=== PATIENT | female | born 1995 | race Caucasian/White ===

== ENCOUNTER → 2022-04-20 | Outpatient (CLI) | payer BC, SELFPAY ==
[2022-04-20 12:06] LABS: Absolute Lymphocyte Count 2.11 X10^3/uL (0.83-4.51); Absolute Neutrophil Count 3.2 X10^3/uL (2.0-7.7); Basophil# 0.04 X10^3/uL; Basophil% 0.7 % (0-1); Eosinophil# 0.07 X10^3/uL; Eosinophils% 1.2 % (0-5); Hematocrit 40.4 % (37-47); Hemoglobin 14.3 g/dL (12.0-15.0); Lymphocyte # 2.11 X10^3/ul (0.83-4.51); Lymphocyte % 36.4 % (19-41); Mean Corp Hgb Conc 35.4 g/dL (32-36); Mean Corpuscular Hgb 31.8 pg (27.0-32.0); Mean Corpuscular Volume 89.8 fL (81-99); Monocyte# 0.36 X10^3/uL; Monocyte% 6.2 % (0-10); NRBC Flagged by Analyzer 0 % (0-5); Neutrophil % 55.3 % (47-70); Platelet Count 274 K/mm3 (150-450); RBC Distribution Width CV 11.9 % (11.6-14.6); RBC Distribution Width SD 39.2 fl (35.1-43.9); White Blood Count 5.8 K/mm3 (4.4-11.0)
[2022-04-20 12:28] LABS: Ferritin 29 ng/mL (8-252); Prealbumin 23.3 mg/dL (20.0-40.0); T4 Total, Thyroxin 7.3 ug/dL (4.8-13.9); Thyroid Stim Hormone (TSH) 2.77 uIU/mL (0.358-3.74)
[2022-04-21 16:25] LABS: Anti-Nuclear Antibody Test Negative (.)
[2022-04-25 22:30] LABS: Androstenedione 155 ng/dL (41-262); Thyroglobulin Antibody < 1.0 IU/mL (0.0-0.9); Thyroid Peroxidase AB < 8 IU/mL (0-34)
== END | disposition home or self-care (01) ==
DX: L65.9 Nonscarring hair loss, unspecified (principal); L71.8 Other rosacea
CPT/HCPCS: 36415; 82157; 82728; 84134; 84436; 84443; 85025; 86038; 86376; 86800

== ENCOUNTER 2025-07-27 10:11 | Emergency (ER) | payer BC, SELFPAY ==
[2025-07-27 10:12] VITALS: BP 145/72; PULSE 118; RESP 18; TEMP 36.1; O2SAT 95; BMI 29.1
--- NOTE | 2025-07-27 10:36 | ED.VIS.FEGU ---
HPI HPI - Female History of Present Illness Chief Complaint: Vag Bld, Preg Informant: patient Narrative Narrative: 30-year-old female presenting to the emergency room with first trimester concerns. Patient states that she has G2, P0, Ab1. She is about 8-1/2 weeks . She has not been seen for this yet. She states that she was recently on antibiotics for a toenail infection and developed a yeast infection. She completed a 3-day Monistat treatment. Following that treatment she noticed brown vaginal discharge. She states it has not let up. She has been in contact with obstetrics several times over the weekend and today was advised that she should come to emergency and be seen because she she is worried. She denies any significant pelvic cramping or pain. No reported fevers. PFSH PFSH Medical History Seasonal allergies Hx of gonorrhea Hx of chlamydia infection history ingrown toenail Home Medications ?Medication ?Instructions ?Recorded ?Last Taken ?Type PNV 153-FA 400 mcg-om3 35 mg-dha tab PO 07/25/25 Unknown History 25 mg-epa 5 mg-fish oil chew tablet ferrous sulfate 325 mg (65 mg 325 mg PO QDAY 07/25/25 Unknown History iron) tablet (FeroSul) Allergy/AdvReac Type Severity Reaction Status Date / Time cat dander Allergy Intermediate Hives Verified 07/27/25 10:11 Family History Mother Breast cancer, Onset Age: 49 INVASIVE DUCTAL, estrogen positive, 2013 Met's to bones, HER2 + 2014 Father Cancer, Onset Age: 46 Prostate Aunt Colon cancer Paternal Grandfather Cancer, Onset Age: 65 Paternal Prostate Surgical History H/O foot surgery Social History adopted: No household members: spouse housing: apartment current occupational status: employed current occupation: [employer] pets and animals: Yes pets and animals: dog(s) history of recent travel: No sexually active: Yes Smoking Status: Never smoker alcohol intake: current alcohol intake frequency: 3 or more drinks per day details: no drinking since substance use type: does not use well-balanced diet: daily or most days caffeine: No eating out: 1-3 times/week during the past year weight has: remained stable what type of physical activity do you participate in: walking frequency: 1-2 times per week duration: 15-30 minutes/day heavenly/restorationism: None seatbelt use: always do you feel safe at home: Yes additional social history: [employer] ROS ROS ED Constitutional Constitutional ED: Denies chills, fever(s) or weight loss Eyes Eyes: Denies change in vision or diplopia ENT ENT ED: Denies ear pain, rhinorrhea or sore throat Cardiovascular Cardiovascular: Denies chest pain, orthopnea, palpitations or racing heartbeat Respiratory/Chest Respiratory/Chest: Denies cough, dyspnea or orthopnea Gastrointestinal Gastrointestinal: Denies abdominal pain, diarrhea, nausea or vomiting Genitourinary Genitourinary ED: Reports other Details: See history of present illness ; Denies dysuria, hematuria or urinary frequency Musculoskeletal Musculoskeletal: Denies arthralgias or myalgias Integumentary Denies abscess or rash Neurologic Neurologic: Denies headache(s) or weakness Psychiatric Psychiatric: Denies anxiety, depression, suicidal ideation or suicidal thoughts Endocrine Endocrinology: Denies polydipsia, polyphagia or polyuria Allergic/Immunologic Allergic/Immunologic ED: Denies mouth swelling, tongue swelling or urticaria EXAM Physical Exam Const Vital Signs: 07/27/25 10:12 07/27/25 12:11 07/27/25 13:18 Temperature 96.9 F L 96.9 F L Temperature Source Temporal Pulse Rate 118 H 85 93 Respiratory Rate 18 16 Blood Pressure 145/72 H 110/61 117/70 Blood Pressure Mean 96 77 85 Pulse Ox 95 100 100 Oxygen Delivery Method Room Air Room Air Positive well nourished and well developed General Appearance ED: well developed and NAD HEENT Reports normocephalic, head/scalp atraumatic and moist mucous membranes Eyes PERRL and EOMs intact bilaterally Neck no lymphadenopathy, supple and no JVD Resp normal respiratory effort and clear to auscultation bilaterally Cardio regular rate, regular rhythm and no murmurs GI normal to inspection, nondistended, normoactive bowel sounds and non-tender Palpation: soft Narrative: Pelvic examination performed in the presence of female CHIEF DEVELOPMENT OFFICER (Cheryl). There is a light brownish discharge in the vaginal vault. I do not see any excoriation abrasions or lacerations of the vaginal wall or the cervix. Cervix appears closed. Uterus nontender. No significant adnexal tenderness. Back/Spine no CVA tenderness and normal ROM Extremity normal to inspection General Extremety ED: Negative for edema General Extremity: Negative for edema Neuro oriented x3 and CN's II-XII intact bilaterally Sensorium / Orientation: alert Motor Exam: strength 5/5 throughout Psych mental status grossly normal Mood & Affect: Negative for depressed or tearful Skin no rashes or lesions noted and no wounds MDM MDM MDM Narrative Medical decision making narrative: Differential diagnosis includes but not limited to ectopic placenta previa threatened miscarriage incomplete miscarriage blighted ovum cervicitis Basic blood work was obtained shows a quantitative hCG of 82,976. Hemoglobin 14.6. Urinalysis with 2+ bacteria but no overt infection. She is a positive. First trimester ultrasound demonstrates a single live intrauterine . Please see radiologist read for full details. The above results were discussed with patient as well as her . Reassurance was given. Precautions given. She is to follow-up with obstetrics. Her plan is to call them on Monday as she is already talk with them over the weekend. History & Record Review Discussion w/independent historian: Patient and Significant other Lab Data Attestation: I reviewed the patient's lab results. Labs: Laboratory Results - last 24 hr 07/27/25 07/27/25 10:33 11:05 Hgb 14.6 Hct 41.3 HCG, Quant 58829 H Urine Color Straw Urine Clarity Clear Urine pH 7.0 Ur Specific [place] 1.005 Urine Protein Negative Urine Glucose (UA) Normal Urine Ketones Negative Urine Occult Blood Negative Urine Nitrite Negative Urine Bilirubin Negative Urine Urobilinogen Normal Ur Leukocyte Esterase Negative Urine RBC 0 SEEN Urine WBC 0-5 SEEN Ur Squamous Epith Cells 0-5 SEEN Urine Bacteria 2+ Urine Mucus 0 SEEN Blood Type A POSITIVE Radiography Diagnostic Testing: Clinical Impression(s) from Imaging Studies Obstetrics Ultrasound 07/27/25 11:18 IMPRESSION: Single live intrauterine with an EGA of 7 weeks 5 days. Size equals dates. No acute abnormality. Reading Location: [id number] Discharge Plan Triage Chief Complaint: Vag Bld, Preg ED Provider: Yordan Cox Dx/Rx/DC Orders Clinical Impression: First trimester Instructions: 1st Trimester, Miscarriage Threatened Prescriptions: No Action PNV no.[id number] 400 mcg-35 mg- 25 mg-5 mg tablet,chewable PO ferrous sulfate [FeroSul] 325 mg (65 mg iron) tablet 325 mg PO QDAY Primary Care Provider: Care Physician,No Primary Referrals: Care Physician,No Primary [Primary Care Provider, Medical] Activity Restrictions/Additional Instructions: Please call your supplies packer on Monday to arrange follow-up. Print Language: Wolof Disposition Disposition: Home, Self Care Discharge Date/Time: 07/27/25 13:26
--- OUTSIDE RECORDS SUMMARY | 2025-07-27 10:55 | XMS RPT_ITS | CCD ---
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 treatment plan. Ayanna Casanova APRN.POOJA documented in this encounter [facility] History of Present illness Narrative 09-01-2020 Laina Gama)Vikash - 09/01/2020 3:00 PM EST Note Date & Type Note Facility 09-01-2020 History of Presen t illness Narrative Radiology Service Progress Note PATIENT NAME: Nicolas Patel DATE OF SERVICE: September 01, 2020 TIME: 3:10 PM PATIENT IDENTITY VERIFICATION COMPLETED USING TWO (2) IDENTIFIERS: Name and Date of confirmed by patient verbally. FALL SCREENING: Has the patient had 2 falls in the last year or 1 fall with injury or currently using an Ambulatory Assistive Device (Walker, Cane, Wheelchair, Crutches, etc.)? No PATIENT GENDER DATA: Female. status: : No status: NO. PATIENT RELEVANT IMPLANT DATA REVIEWED: Not Applicable RADIOLOGY DEPARTMENT: General X-ray: Exam(s) Completed: Lower Extremity X-Ray(s): Foot, Left and Wt. Bearing: PERIPHERAL IV DATA: Not applicable SIGNED BY: RT Trish September 01, 2020 3:10 PM documented in this encounter [facility] Evaluation note Note Date & Type Note Facility Evaluation note No assessment information [facility] Work Phone: Evaluation note Note Date & Type Note Facility Evaluation note Diagnosis Pain with urination- Primary Renal colic documented in this encounter [facility] Evaluation note Note Date & Type Note Facility Evaluation note Diagnosis Rash- Primary Rash and other nonspecific skin eruption documented in this encounter [facility] Summary Purpose Family History No Family History Records FoundNo Family History Records FoundNo Family History Records Found Advance Directives No Advanced Directives Records FoundNo Advanced Directives Records FoundNo Advanced Directives Records Found Additional Source Comments INFORMATION SOURCE (unrecogn ized section and content) DATE CREATED AUTHOR 12/02/2019 [facility] DATE CREATED AUTHOR AUTHOR'S ORGANIZ ATION 10/12/2023 [facility] CREATED AUTHOR AUTHOR'S ORGANIZ ATION 07/27/2025 [facility] Goals (unrecognized section and content) Goals may be documented in a n alternate section Source Comments (unrecognize d section and content) In the event this informatio n is protected by the Federal Confidentiality of Alcohol and Drug Abuse Patient Records regulations: The Federal rules restrict any use of the information to criminally investigate or prosecute any alcohol or drug abuse patient.[facility] the event this information is protected by the Federal Confidentiality of Alcohol and Drug Abuse Patient Records regulations: The Federal rules restrict any use of the information to criminally investigate or prosecute any alcohol or drug abuse patient.[facility] the event this information is protected by the Federal Confidentiality of Alcohol and Drug Abuse Patient Records regulations: The Federal rules restrict any use of the information to criminally investigate or prosecute any alcohol or drug abuse patient.[facility] the event this information is protected by the Federal Confidentiality of Alcohol and Drug Abuse Patient Records regulations: The Federal rules restrict any use of the information to criminally investigate or prosecute any alcohol or drug abuse patient.[facility] the event this information is protected by the Federal Confidentiality of Alcohol and Drug Abuse Patient Records regulations: The Federal rules restrict any use of the information to criminally investigate or prosecute any alcohol or drug abuse patient.[facility] Reason for Visit (unrecogniz ed section and content) Reason Comments Urinary Problem pain with urination x 3 days Reason Comments Derm Problem Redness and itching under left eye off and on x several weeks Care Teams (unrecognized sec tion and content) [employer] Relationship Specialty Start Date End Date Viviana Charles MD [address] [place] [address] PCP - General 07/12/02 12/23/20 FOR RECORDS PERTAINING TO PATIENTS WHO ARE OR HAVE BEEN ENROLLED IN A CHEMICAL DEPENDENCY/SUBSTANCEABUSE PROGRAM, SOME INFORMATION MAY BE OMITTED. This clinical summary was aggregated from multiple sources. Caution should be exercised in using it in the provision of clinical care. This summary normalizes information from multiple sources, and as a consequence, information in this document may materially change the coding, format and clinical context of patient data. In addition, data may be omitted in some cases. CLINICAL DECISIONS SHOULD BE BASED ON THE PRIMARY CLINICAL RECORDS. [facility] [employer] [facility]. provides no warranty or guarantee of the accuracy or completeness of information in this document.
[2025-07-27 11:12] LABS: Mucous, Urine 0 SEEN /hpf (<or=2+); Red Blood Cells-Urine 0 SEEN /hpf (0-5)
[2025-07-27 11:15] LABS: Color, Urine Straw (Yellow); Glucose, Dipstick Normal (Normal); Ketone-Dipstick Negative (Negative); Leukocyte Esterase-Dipstick Negative /ul (Negative); Nitrite-Dipstick Negative (Negative); Occult Blood-Urine Negative /ul (Negative); Protein-Dipstick Negative (Negative); Specific Gravity, Urine 1.005 (1.002-1.030); Urine Bilirubin Dipstick Negative (Negative)
--- NOTE | 2025-07-27 11:18 | US_ITS ---
PROCEDURE: TRANSVAGINAL W/PREG US 07/27/2025 REASON FOR EXAM: FIRST TRIMESTER BLEEDING TECHNIQUE: Procedure Code: [id number] Modality: US Procedure: TRANSVAGINAL W/PREG US COMPARISON: None. FINDINGS GESTATION: Single intrauterine gestational sac with a mean diameter of 29.0 mm. An embryonic pole is identified with a mean crown rump length of 12.0 mm. Positive cardiac activity with a heart rate of 159 beats per minute. Normal appearing yolk sac present. No gross abnormality is identified. LMP gestational age: 8 weeks 3 days LMP MARKO: March 05, 2026 Sonographic gestational age: 7 weeks 5 days Sonographic MARKO: March 10, 2026 UTERUS: Unremarkable measuring 11.5 x 7.6 x 5.0 cm. No myometrial mass. CERVIX: Closed. Small cervical nabothian cyst. OVARIES: Right ovary measures 3.3 x 2.0 x 1.8 cm with a volume of 6.1 mL. Hypoechoic 1.4 x 2.0 x 1.8 cm region in the right ovary, likely a corpus luteum. Left ovary measures 1.7 x 1.5 x 2.3 cm with a volume of 3.2 mL. Doppler evaluation confirms bilateral ovarian blood flow. No adnexal mass. FREE FLUID: No free fluid. US/Transvaginal w/Preg US IMPRESSION: Single live intrauterine with an EGA of 7 weeks 5 days. Size equals dates. No acute abnormality. Reading Location: [id number]
[2025-07-27 11:29] LABS: Squamous Epithelial Cells - UA 0-5 SEEN /hpf (5-10)
[2025-07-27 12:04] LABS: Hematocrit 41.3 % (37-47); Hemoglobin 14.6 g/dL (12.0-15.0)
[2025-07-27 12:11] VITALS: BP 110/61; PULSE 85; O2SAT 100
[2025-07-27 13:18] VITALS: BP 117/70; PULSE 93; RESP 16; TEMP 36.1; O2SAT 100
== END 2025-07-27 13:26 | disposition home or self-care (01) ==
PROVIDERS: Emergency Provider Emergency Medicine; Visit Provider Emergency Medicine
DX: O99.891 Other specified diseases and conditions complicating pregnancy (principal); Z3A.01 Less than 8 weeks gestation of pregnancy
CPT/HCPCS: 76817; 81001; 84702; 85014; 85018; 86900; 86901; 99283; A4216

== ENCOUNTER → 2025-08-08 | Outpatient (CLI) | payer BC, SELFPAY ==
[2025-08-11 20:08] LABS: Chlamydia By Nucleic Acid AMP Negative (Negative); Gonococcus By Nucleic Acid AMP Negative (Negative)
== END | disposition home or self-care (01) ==
LOC: LABSPEC 11:53
PROVIDERS: Visit Provider Advanced Practice Midwife
DX: O09.90 Supervision of high risk pregnancy, unspecified, unspecified trimester (principal); Z3A.00 Weeks of gestation of pregnancy not specified; Z12.4 Encounter for screening for malignant neoplasm of cervix
CPT/HCPCS: 87086; 87491; 87591; 88175; G0145

== ENCOUNTER → 2025-08-19 | Outpatient (CLI) | payer BC, SELFPAY ==
[2025-08-19 16:36] LABS: Hematocrit 33.5 % (37-47); Hemoglobin 12.2 g/dL (12.0-15.0); Immature Granulocytes Count 0.020 X10^3/uL (0.0-0.0); Mean Corp Hgb Conc 36.4 g/dL (32-36); Mean Corpuscular Volume 91.0 fL (81-99); Mean Platelet Vol. 9.4 fl (6.2-12.0); NRBC Flagged by Analyzer 0 % (0-5); Platelet Count 210 K/mm3 (150-450); RBC Distribution Width CV 11.6 % (11.6-14.6); RBC Distribution Width SD 38.8 fl (35.1-43.9); Red Blood Count 3.68 M/mm3 (4.2-5.4); White Blood Count 7.4 K/mm3 (4.4-11.0)
[2025-08-19 17:33] LABS: HIV Nonreactive (Nonreactive); Hepatitis B Surface Antigen Nonreactive (Nonreactive); Hepatitis C Antibody Nonreactive (Nonreactive); Syphilis Antibodies Nonreactive (Nonreactive)
== END | disposition home or self-care (01) ==
PROVIDERS: Visit Provider Advanced Practice Midwife
DX: O09.90 Supervision of high risk pregnancy, unspecified, unspecified trimester (principal); Z3A.00 Weeks of gestation of pregnancy not specified
CPT/HCPCS: 36415; 85025; 86703; 86762; 86780; 86803; 86850; 86900; 86901; 87340

== ENCOUNTER → 2025-09-03 | Outpatient (CLI) | payer BC, SELFPAY | END | disposition home or self-care (01) | PROVIDERS: Visit Provider Nurse Practitioner Women's Health | DX: Z34.81 Encounter for supervision of other normal pregnancy, first trimester (principal) | CPT/HCPCS: 36415 ==